=== PATIENT | female | born 1960 | race Caucasian/White ===

== ENCOUNTER 2017-01-01 19:25 | Emergency (ER) | payer OTHER ==
[2017-01-01 20:43] LABS: BASOPHIL % 0.5 % (0-2); PLATELET COUNT 236 x10^3mcL (130-400)
[2017-01-01 20:48] LABS: CALCIUM 8.7 mg/dL (8.5-10.1); CARBON DIOXIDE 25.1 mmol/L (21-32); CHLORIDE SERUM 104 mmol/L (98-107); GFR1 > 60 mL/min; GLUCOSE SERUM 110 mg/dL (74-106); POTASSIUM SERUM 4.1 mmol/L (3.5-5.1); SODIUM SERUM 141 mmol/L (136-145)
[2017-01-01 20:53] LABS: ALKALINE PHOSPHATASE 91 U/L (46-116); ALT/SGPT 48 U/L (14-59); AST/SGOT 61 U/L (15-37); BILIRUBIN TOTAL 0.57 mg/dL (0.20-1.00); CHOLESTEROL 182 mg/dL (<200); PHOSPHOROUS 3.4 mg/dL (2.5-4.9); URIC ACID 4.7 mg/dL (2.6-6.0)
[2017-01-01 20:54] LABS: ALBUMIN 3.2 g/dL (3.4-5.0); HDL CHOLESTEROL 63 mg/dL (40-60)
[2017-01-01 21:43] VITALS: BP 134/77
== END 2017-01-01 21:43 | disposition home or self-care (01) ==
LOC: ED 19:25
PROVIDERS: Emergency Medicine
DX: I87.8 Other specified disorders of veins (principal); I10 Essential (primary) hypertension; E07.9 Disorder of thyroid, unspecified; Z88.1 Allergy status to other antibiotic agents; Z88.8 Allergy status to other drugs, medicaments and biological substances
CPT/HCPCS: 36415; 83880; Q0092